=== PATIENT | male | born 1975 ===

== ENCOUNTER 2020-08-10 13:17 | Outpatient (CLI) | payer OTHER ==
[2020-08-10 13:52] LABS: BILIRUBIN,URINE NEGATIVE (NEGATIVE); GLUCOSE, URINE (UA) NEGATIVE (NEGATIVE); KETONES,URINE (UA) NEGATIVE (NEGATIVE); LEUKOCYTE ESTERASE, URINE NEGATIVE (NEGATIVE); NITRITE,URINE NEGATIVE (NEGATIVE); OCCULT BLOOD,URINE SMALL (NEGATIVE); PROTEIN,URINE NEGATIVE (NEGATIVE); UROBILINOGEN,URINE 0.2 (NORMAL) E.U./dL (NORMAL)
[2020-08-10 13:58] LABS: CLARITY,URINE CLEAR (CLEAR)
== END 2020-08-10 23:59 | disposition home or self-care (01) ==
LOC: LAB.R 13:17
PROVIDERS: ATTEND Registered Nurse
DX: A64 Unspecified sexually transmitted disease (principal); R82.90 Unspecified abnormal findings in urine
CPT/HCPCS: 81003; 87491; 87591; 87661